=== PATIENT | female | born 2000 | race Hispanic/Latino ===

== ENCOUNTER 2020-09-02 10:14 | Emergency (ER) | payer BC ==
--- NOTE | 2020-09-02 10:57 | EDPHYS ---
Physician Documentation [facility] Name: Hetal White Age: 20 yrs Sex: Female : 2000 Arrival Date: 09/02/2020 Time: 10:15 Bed 13 Private MD: ED Physician Frank Carlson HPI: 09/02 10:52 This 20 yrs old Female presents to ER via Ambulatory with complaints of Wrist jr8 Injury. 10:52 The patient or guardian reports decreased range of motion, pain, swelling, tenderness. jr8 The complaints affect the left wrist diffusely. Context: The problem was sustained at home, resulted from a fall. Onset: The symptoms/episode began/occurred acutely, yesterday. Modifying factors: The symptoms are alleviated by nothing, the symptoms are aggravated by movement. Associated signs and symptoms: The patient has no apparent associated signs or symptoms. The patient has not experienced similar symptoms in the past. The patient has not recently seen a physician. Patient stated that she fell off barstool. Tried to catch herself but landed on an extended left wrist. Pain over radial portion of wrist with swelling since incident . 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 - Social history:: Smoking status: Reported history of juuling and/or vaping. Patient uses alcohol, occasionally. ROS: 10:52 Eyes: Negative for injury, pain, redness, and discharge, ENT: Negative for injury, jr8 pain, and discharge, Neck: Negative for injury, pain, and swelling, Cardiovascular: Negative for chest pain, palpitations, and edema, Respiratory: Negative for shortness of breath, cough, wheezing, and pleuritic chest pain, Abdomen/GI: Negative for abdominal pain, nausea, vomiting, diarrhea, and constipation, Back: Negative for injury and pain, Skin: Negative for injury, rash, and discoloration, Neuro: Negative for headache, weakness, numbness, tingling, and seizure. 10:52 MS/extremity: Positive for decreased range of motion, pain, swelling, tenderness, of the left wrist. Exam: 10:52 Constitutional: This is a well developed, well nourished patient who is awake, alert, jr8 and in no acute distress. Cardiovascular: Regular rate and rhythm with a normal S1 and S2. No gallops, murmurs, or rubs. Normal PMI, no JVD. No pulse deficits. Respiratory: Lungs have equal breath sounds bilaterally, clear to auscultation and percussion. No rales, rhonchi or wheezes noted. No increased work of breathing, no retractions or nasal flaring. Skin: Warm, dry with normal turgor. Normal color with no rashes, no lesions, and no evidence of cellulitis. Neuro: Awake and alert, GCS 15, oriented to person, place, time, and situation. Cranial nerves II-XII grossly intact. Motor strength 5/5 in all extremities. Sensory grossly intact. Cerebellar exam normal. Normal gait. 10:52 Musculoskeletal/extremity: Extremities: grossly normal except: noted in the left wrist: swelling noted to left radial portion of wrist with moderate point tenderness. Full Active Passive ROM present but with moderate pain , Circulation is intact in all extremities. Pulses: noted to be 2+ in the right radial artery and left radial artery, Sensation intact. Vital Signs: 10:28 BP 131 / 67; Pulse 89; Resp 18; Temp 98.5(TE); Pulse Ox 99% on R/A; Weight 81.65 kg tw2 (R); Height 5 ft. 4 in. (162.56 cm); Pain 8/10; 11:27 BP 116 / 65; Pulse 64; Resp 18; Pulse Ox 100% on R/A; Pain 6/10; tw2 10:28 Body Mass Index 30.90 (81.65 kg, 162.56 cm) tw2 Procedures: 10:52 Splinting: Splint applied to left wrist using Orthoglass splint, applied by tech. jr8 Examined by me, post splint application: neurovascular intact, 2+ distal pulses palpable, brisk capillary refill noted, Patient tolerated well. MDM: 10:35 Patient medically screened. jr8 10:37 Patient medically screened. jr8 10:52 Data reviewed: vital signs, nurses notes, radiologic studies, plain films. Data jr8 interpreted: Pulse oximetry: on room air is 99 %. Interpretation: normal. Counseling: I had a detailed discussion with the patient and/or guardian regarding: the historical points, exam findings, and any diagnostic results supporting the discharge/admit diagnosis, radiology results, the need for outpatient follow up, a orthopedic surgeon, to return to the emergency department if symptoms worsen or persist or if there are any questions or concerns that arise at home. 09/02 10:35 Order name: XRAY Wrist LEFT 3 view; Complete Time: jr8 09/02 10:55 Order name: Sugar Tong Forearm Splint; Complete Time: : tw2 09/02 11:28 Order name: Sling; Complete Time: : tw2 Administered Medications: 10:54 Drug: [place] (7.5 mg-325 mg) 1 tabs {Note: RASS 0.} Route: PO; tw2 11:27 Follow up: Response: No adverse reaction; Pain is decreased; RASS: Alert and Calm (0) tw2 Disposition: 09/03 09:22 Co-signature as Attending Physician, Frank Carlson MD I agree with the assessment and karyna plan of care. Disposition: 09/02/20 10:56 Discharged to Home. Impression: Distal Radius Fracture Left Wrist . - Condition is Stable. - Discharge Instructions: Wrist Fracture Treated With Immobilization. - Prescriptions for Ibuprofen 800 mg Oral Tablet - take 1 tablet by ORAL route every 12 hours As needed take with food; 20 tablet. - Medication Reconciliation Form, Thank You Letter, Antibiotic Education, Prescription Opioid Use form. - Follow up: Hosea Orozco MD; When: 2 - 3 days; Reason: Recheck today's complaints, Continuance of care, Re-evaluation by your physician. - Problem is new. - Symptoms have improved. Signatures: Dispatcher [employer] [facility] Frank Carlson MD MD cha Roszak, Josh, PA PA jr8 Stephanie Sims, RN RN tw2 Corrections: (The following items were deleted from the chart) 09/02 11: 10:56 09/02/2020 10:56 Discharged to Home. Impression: Distal Radius Fracture Left tw2 Wrist . Condition is Stable. Forms are Medication Reconciliation Form, Thank You Letter, Antibiotic Education, Prescription Opioid Use. Follow up: Dr. Hosea Orozco; When: 2 - 3 days; Reason: Recheck today's complaints, Continuance of care, Re-evaluation by your physician. Problem is new. Symptoms have improved. jr8
--- NOTE | 2020-09-02 10:57 | ER ---
Nurse's Notes [facility] Name: Hetal White Age: 20 yrs Sex: Female : 2000 Arrival Date: 09/02/2020 Time: 10:15 Bed 13 Private MD: Diagnosis: Distal Radius Fracture Left Wrist Presentation: 09/02 10:28 Chief complaint: Patient states: Wednesday i fell when i went to sit on a stool, i went to tw2 catch myself and the pain has just increased, i can grab stuff but it hurts to move it, my LEFT wrist. Coronavirus screen: At this time, the client does not indicate any symptoms associated with coronavirus-19. Ebola Screen: Patient denies travel to an Ebola-affected area in the 21 days before illness onset. Initial Sepsis Screen: Does the patient meet any 2 criteria? No. Patient's initial sepsis screen is negative. Does the patient have a suspected source of infection? No. Patient's initial sepsis screen is negative. Risk Assessment: Do you want to hurt yourself or someone else? Patient reports no desire to harm self or others. Onset of symptoms was September 02, 2020. 10:28 Method Of Arrival: Ambulatory tw2 10:28 Acuity: MAREK 4 tw2 Triage Assessment: 10:31 General: Appears in no apparent distress. well groomed, Behavior is calm, cooperative, tw2 appropriate for age. Pain: Complains of pain in LEFT wrist. EENT: No signs and/or symptoms were reported regarding the EENT system. Neuro: Level of Consciousness is awake, alert, obeys commands, Oriented to person, place, time, situation. Cardiovascular: Patient's skin is warm and dry. Respiratory: Airway is patent Respiratory effort is even, unlabored, Respiratory pattern is regular, symmetrical. GI: No signs and/or symptoms were reported involving the gastrointestinal system. : No signs and/or symptoms were reported regarding the genitourinary system. Derm: No signs and/or symptoms reported regarding the dermatologic system. Musculoskeletal: Circulation, motion, and sensation intact. Range of motion: intact in all extremities, Reports pain in LEFT wrist pt reports swelling. Injury Description: "tried to catch myself when i went to sit on a stool". 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 - Social history:: Smoking status: Reported history of juuling and/or vaping. Patient uses alcohol, occasionally. Screenin:33 Abuse screen: Denies threats or abuse. Nutritional screening: No deficits noted. tw2 Tuberculosis screening: No symptoms or risk factors identified. Fall Risk None identified. Assessment: 10:32 Reassessment: see triage assessment. tw2 10:50 Reassessment: provider at bedside at this time. tw2 11:27 Reassessment: Patient appears in no apparent distress at this time. No changes from tw2 previously documented assessment. Patient and/or family updated on plan of care and expected duration. Pain level reassessed. Patient is alert, oriented x 3, equal unlabored respirations, skin warm/dry/pink. Vital Signs: 10:28 BP 131 / 67; Pulse 89; Resp 18; Temp 98.5(TE); Pulse Ox 99% on R/A; Weight 81.65 kg tw2 (R); Height 5 ft. 4 in. (162.56 cm); Pain 8/10; 11:27 BP 116 / 65; Pulse 64; Resp 18; Pulse Ox 100% on R/A; Pain 6/10; tw2 10:28 Body Mass Index 30.90 (81.65 kg, 162.56 cm) tw2 ED Course: 10:15 Patient arrived in ED. ag5 10:23 Bed in low position. Call light in reach. Adult w/ patient. Pulse ox on. NIBP on. tw2 10:30 Triage completed. tw2 10:32 Arm band placed on. tw2 10:35 Puneet Peguero PA is PHCP. jr8 10:35 Frank Carlson MD is Attending Physician. jr8 10:47 XRAY Wrist LEFT 3 view In Process Unspecified. EDMS 10:49 Stephanie Sims, JAIME is Primary Nurse. tw2 10:56 Hosea Orozco MD is Referral Physician. jr8 11:08 Orthoglass splint: Sugar tong splint applied on left arm. Sling applied to left arm. ct 11:28 No provider procedures requiring assistance completed. Patient did not have IV access tw2 during this emergency room visit. Administered Medications: 10:54 Drug: [place] (7.5 mg-325 mg) 1 tabs {Note: RASS 0.} Route: PO; tw2 11:27 Follow up: Response: No adverse reaction; Pain is decreased; RASS: Alert and Calm (0) tw2 Outcome: 10:56 Discharge ordered by MD. whatley 11:28 Discharged to home ambulatory, with family. tw2 11:28 Condition: stable 11:28 Discharge instructions given to patient, family, Instructed on discharge instructions, follow up and referral plans. medication usage, Demonstrated understanding of instructions, follow-up care, medications, Prescriptions given X 1. 11:28 Patient left the ED. tw2 Signatures: Dispatcher [employer] EDMS Puneet Peguero PA PA jrStephanie Souza RN RN tw2 Criselda Miles ct Chon Mccoy [facility]
[2020-09-02] MEDS ORDERED: HYDROCODONE/APAP 7.5/325 MG TAB ONE (11:06)
--- NOTE | 2020-09-02 11:20 | RAD REPORT ---
EXAM DESCRIPTION: RAD - Wrist Left 3 View - 09/02/2020 10:49 am CLINICAL HISTORY: PAIN Pain COMPARISON: No comparisons FINDINGS: Soft tissue swelling is seen along the dorsum of the wrist. No acute fracture or dislocat ion is seen.
[2020-09-02 14:36] VITALS: TEMP 98.5
[2020-09-02 14:37] VITALS: BP 116/65; O2SAT 100
== END 2020-09-02 11:28 | disposition home or self-care (01) ==
LOC: ER 10:14
PROC: 2W3DX1Z Immobilization of Left Lower Arm using Splint (ICD-10-PCS; principal; 2020-09-02)
DX: S52.502A Unspecified fracture of the lower end of left radius, initial encounter for closed fracture (principal); W17.89XA Other fall from one level to another, initial encounter; Y93.9 Activity, unspecified; Y92.009 Unspecified place in unspecified non-institutional (private) residence as the place of occurrence of the external cause
CPT/HCPCS: 99284

== ENCOUNTER 2021-03-24 22:26 | Emergency (ER) | payer BC ==
[2021-03-24] MEDS ORDERED: ONDANSETRON 4 MG/2 ML VIAL ONE (23:50)
[2021-03-24] MEDS ORDERED: NA CHLORIDE 0.9% 1,000 ML ONE (23:51)
[2021-03-24] MEDS ORDERED: IBUPROFEN 400 MG TAB ONE (23:51)
[2021-03-25 00:10] LABS: Albumin 3.5 g/dL (3.4-5.0); Bilirubin Direct 0.2 mg/dL (0-0.2); Bilirubin Total 0.7 mg/dL (0.2-1.0); Potassium 3.7 mmol/L (3.5-5.1); Protein, Total 7.7 g/dL (6.4-8.2)
[2021-03-25 00:25] LABS: Absolute Lymphocytes (CBC) 1.9 K/uL (0.7-4.9); Basophils % 0.3 % (0-1.3); Hematocrit 38.2 % (36.0-45.0); Lymphocytes % 9.7 % (15.3-44.8); MPV 9.4 fL (7.6-11.3); RBC Red Blood Cell Count 4.37 M/uL (3.86-4.86)
[2021-03-25] MEDS ORDERED: NA CHLORIDE 0.9% 1,000 ML ONE (01:14)
[2021-03-25 01:42] LABS: Urine Bacteria <20 /HPF (<20)
[2021-03-25 01:43] LABS: Urine RBC <5 /HPF (NONE SEEN); Urine Urothelial Cells <5 /HPF (NONE SEEN)
[2021-03-25] MEDS ORDERED: CEFTRIAXONE/SWI 1gm 1 GM/10 ML SYR ONE (02:29)
[2021-03-25 03:04] LABS: Urine Specific Gravity/Preg <1.005 (1.005-1.030)
--- NOTE | 2021-03-25 04:05 | ER ---
Nurse's Notes [facility] Name: Hetal White Age: 21 yrs Sex: Female : 2000 Arrival Date: 03/24/2021 Time: 22:29 Bed 20 Private MD: Diagnosis: Other abdominal pain;Urinary tract infection, site not specified Presentation: 03/24 23:06 Chief complaint: Patient states: she started having abdominal pain on Wednesday with bb vomiting then diarrhea starting today and had temp at home of 104 took tylenol at 1730. Coronavirus screen: diarrhea, fever, vomiting. Client presents with at least one sign or symptom that may indicate coronavirus-19. Standard/surgical mask placed on the client. Ebola Screen: No symptoms or risks identified at this time. Initial Sepsis Screen: Does the patient meet any 2 criteria? Temp <36.0*C (96.8*F)) or > 38.3*C (100.9*F). HR > 90 bpm. Yes Does the patient have a suspected source of infection? No. Patient's initial sepsis screen is negative. Risk Assessment: Do you want to hurt yourself or someone else? Patient reports no desire to harm self or others. Onset of symptoms was March 23, 2021. 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 - Social history:: Smoking status: Reported history of juuling and/or vaping. Patient uses alcohol, but reports only rare drinking. Patient/guardian denies using street drugs. Screenin:23 Abuse screen: Denies threats or abuse. Nutritional screening: No deficits noted. ea Tuberculosis screening: No symptoms or risk factors identified. Fall Risk None identified. Assessment: 23:23 General: Appears uncomfortable, Behavior is appropriate for age. Neuro: Level of ea Consciousness is awake, alert, obeys commands, Oriented to person, place, time. Respiratory: Airway is patent Respiratory effort is even, unlabored, Respiratory pattern is regular, symmetrical. Derm: Skin is pink, warm \T\ dry. 03/25 00:29 Reassessment: Patient and/or family updated on plan of care and expected duration. Pain ea level reassessed. Patient is alert, oriented x 3, equal unlabored respirations, skin warm/dry/pink. 01:09 Reassessment: Patient and/or family updated on plan of care and expected duration. Pain ea level reassessed. Patient is alert, oriented x 3, equal unlabored respirations, skin warm/dry/pink. Patient states feeling better. 02:22 Reassessment: Patient and/or family updated on plan of care and expected duration. Pain ea level reassessed. Patient is alert, oriented x 3, equal unlabored respirations, skin warm/dry/pink. Patient states feeling better. 03:05 Reassessment: Patient and/or family updated on plan of care and expected duration. Pain ea level reassessed. Patient is alert, oriented x 3, equal unlabored respirations, skin warm/dry/pink. Awaiting on CT results. 04:11 Reassessment: Patient appears in no apparent distress at this time. Patient is alert, ad5 oriented x 3, equal unlabored respirations, skin warm/dry/pink. Patient states feeling better. Vital Signs: 03/24 23:06 BP 115 / 66; Pulse 139; Resp 18 S; Temp 103.8(O); Pulse Ox 99% on R/A; Weight 81.65 kg bb (R); Height 5 ft. 3 in. (160.02 cm) (R); Pain 0/10; 03/25 01:06 BP 108 / 60; Pulse 108; Resp 20; Temp 100.4; Pulse Ox 96% ; ea 03:45 BP 101 / 60; Pulse 77; Resp 18 S; Temp 98.5(O); Pulse Ox 98% on R/A; ad5 03/24 23:06 Body Mass Index 31.89 (81.65 kg, 160.02 cm) bb ED Course: 03/24 22:29 Patient arrived in ED. am4 23:08 Triage completed. bb 23:09 Arm band placed on Patient placed in an exam room, on a stretcher, on pulse oximetry. bb Family accompanied patient. 23:16 Frank Julio PA is PHCP. cp 23:16 Negrito Lau MD is Attending Physician. cp 23:23 Candace Weathers, JAIME is Primary Nurse. ea 23:23 Patient has correct armband on for positive identification. Bed in low position. Call ea light in reach. 23:45 Inserted saline lock: 20 gauge in right antecubital area, using aseptic technique. ea Blood collected. 03/25 02:47 CT Abd/Pelvis - IV Contrast Only In Process Unspecified. EDMS 04:11 No provider procedures requiring assistance completed. IV discontinued, intact, ad5 bleeding controlled, No redness/swelling at site. Pressure dressing applied. Administered Medications: 03/24 23:44 Drug: NS 0.9% 1000 ml Route: IV; Rate: 1 bolus; Site: right antecubital; ea 03/25 01:05 Follow up: Response: No adverse reaction; IV Status: Completed infusion; IV Intake: ea 1000ml 03/24 23:44 Drug: Zofran (Ondansetron) 4 mg Route: IVP; Site: right antecubital; ea 03/25 01:06 Follow up: Response: No adverse reaction ea 03/24 23:44 Drug: Ibuprofen 800 mg Route: PO; ea 03/25 01:06 Follow up: Response: No adverse reaction; Temperature is decreased ea 01:05 Drug: NS 0.9% 1000 ml Route: IV; Rate: 1 bolus; Site: right antecubital; ea 03:46 Follow up: IV Status: Completed infusion; IV Intake: 1000ml ad5 02:16 Drug: Rocephin (cefTRIAXone) 1 grams Route: IV; Rate: bolus; Site: right antecubital; ea 04:11 Follow up: IV Status: Completed infusion ad5 Intake: 01:05 IV: 1000ml; Total: 1000ml. ea 03:46 IV: 1000ml; Total: 2000ml. ad5 Outcome: 04:03 Discharge ordered by . tw4 04:12 Discharged to home ambulatory, with family. ad5 04:12 Condition: stable 04:12 Discharge instructions given to patient, Instructed on discharge instructions, follow up and referral plans. medication usage, Demonstrated understanding of instructions, follow-up care, medications, Prescriptions given X 3. 04:12 Patient left the ED. ad5 Signatures: Dispatcher [facility] Zaira Cloud RN RN Frank Andrade PA PA cp Antunez, Elena, RN RN Negrito Salazar MD MD tw4 Hetal Chatterjee am4 Reji Dumont
--- NOTE | 2021-03-25 04:05 | EDPHYS ---
Physician Documentation [facility] Name: Hetal White Age: 21 yrs Sex: Female : 2000 Arrival Date: 03/24/2021 Time: 22:29 Bed 20 Private MD: ED Physician Negrito aLu HPI: 03/24 23:35 This 21 yrs old Female presents to ER via Ambulatory with complaints of Fever, cp RINGING OG THE EARS. 23:35 The patient reports fever, with an emergency department temperature of 103.8 degrees cp Fahrenheit. Onset: The symptoms/episode began/occurred yesterday. 23:35 Associated signs and symptoms: Pertinent positives: diarrhea, nausea, vomiting. cp 23:35 Severity of symptoms: in the emergency department the symptoms are unchanged despite cp home interventions. F[employer] VEGETABLE: 23:09 LMP 03/17/2021 bb Historical: - Allergies: 23:09 No Known Allergies; bb - Home Meds: 23:09 tri-lo-Emmy control [Active]; bb - PMHx: 23:09 None; bb - PSHx: 23:09 None; bb - Immunization history:: Adult Immunizations up to date. - Social history:: Smoking status: Reported history of juuling and/or vaping. Patient uses alcohol, but reports only rare drinking. Patient/guardian denies using street drugs. ROS: 23:40 Constitutional: Positive for chills, fever. cp 23:40 Eyes: Negative for injury, pain, redness, and discharge. cp 23:40 ENT: Negative for drainage from ear(s), ear pain, sore throat, difficulty swallowing, difficulty handling secretions. 23:40 Neck: Negative for pain with movement, pain at rest, stiffness. 23:40 Cardiovascular: Negative for chest pain. 23:40 Respiratory: Negative for cough, shortness of breath, wheezing. 23:40 Abdomen/GI: Positive for nausea, vomiting, and diarrhea, Negative for abdominal pain, constipation. 23:40 Back: Negative for pain at rest, pain with movement. 23:40 : Negative for urinary symptoms. 23:40 Skin: Negative for cellulitis, rash. 23:40 Neuro: Negative for altered mental status, headache, weakness. 23:40 All other systems are negative. Exam: 23:45 Constitutional: The patient appears in no acute distress, alert, awake, comfortable, cp non-toxic, well developed, well nourished. 23:45 Head/Face: Normocephalic, atraumatic. cp 23:45 Eyes: Periorbital structures: appear normal, Conjunctiva: normal, no exudate, no injection, Sclera: no appreciated abnormality, Lids and lashes: appear normal, bilaterally. 23:45 ENT: External ear(s): are unremarkable, Ear canal(s): are normal, clear, TM's: dullness, bilaterally, Nose: is normal, Mouth: Lips: moist, Oral mucosa: moist, Posterior pharynx: Airway: no evidence of obstruction, patent. 23:45 Neck: ROM/movement: is normal, is supple, without pain, no range of motions limitations, no meningismus. 23:45 Chest/axilla: Inspection: normal, Palpation: is normal, no crepitus, no tenderness. 23:45 Cardiovascular: Rate: tachycardic, Rhythm: regular. 23:45 Respiratory: the patient does not display signs of respiratory distress, Respirations: normal, no use of accessory muscles, no retractions, labored breathing, is not present, Breath sounds: are clear throughout, no decreased breath sounds, no stridor, no wheezing. 23:45 Abdomen/GI: Inspection: abdomen appears normal, Bowel sounds: active, all quadrants, Palpation: abdomen is soft and non-tender, in all quadrants, rebound tenderness, is not appreciated, voluntary guarding, is not appreciated, involuntary guarding, is not appreciated. 23:45 Back: pain, is absent, ROM is normal. 23:45 Skin: cellulitis, is not appreciated, no rash present. Vital Signs: 23:06 BP 115 / 66; Pulse 139; Resp 18 S; Temp 103.8(O); Pulse Ox 99% on R/A; Weight 81.65 kg bb (R); Height 5 ft. 3 in. (160.02 cm) (R); Pain 0/10; 03/25 01:06 BP 108 / 60; Pulse 108; Resp 20; Temp 100.4; Pulse Ox 96% ; ea 03:45 BP 101 / 60; Pulse 77; Resp 18 S; Temp 98.5(O); Pulse Ox 98% on R/A; ad5 03/24 23:06 Body Mass Index 31.89 (81.65 kg, 160.02 cm) bb MDM: 03/24 23:18 Patient medically screened. 03/25 00:00 Differential diagnosis: URI, bronchitis, pneumonia UTI, sepsis. cp 02:10 Data reviewed: vital signs, nurses notes, lab test result(s). 02:10 Transition of care: After a detail discussion of the patient's case, care is cp transferred to Negrito Lau MD. 03/24 23:26 Order name: Basic Metabolic Panel 03/24 23:26 Order name: CBC with Diff 03/24 23:26 Order name: Hepatic Function 03/24 23:26 Order name: Lipase 03/24 23:26 Order name: Urine Microscopic Only; Complete Time: 02:05 03/24 23:26 Order name: Influenza Screen (a \T\ B); Complete Time: 00:37 03/24 23:27 Order name: Basic Metabolic Panel; Complete Time: 00:37 EDNV 03/25 00:37 Interpretation: Normal except: GLUC 120; GFR 83. 03/24 23:27 Order name: CBC with Automated Diff; Complete Time: 00:37 EDNV 03/25 00:37 Interpretation: Normal except: WBC 19.90; GUANAKO% 80.9; LYM% 9.7; NEUT A 16.1; MNA 1.8. 03/24 23:27 Order name: Liver (Hepatic) Function; Complete Time: 00:37 EDNV 03/25 00:38 Interpretation: Normal except: AST 8; GLOB 4.2; A/G 0.8. 03/24 23:27 Order name: Lipase; Complete Time: 00:37 EDNV 03/25 01:38 Order name: SARS-COV-2 RT PCR; Complete Time: 02:06 EDNV 03/25 01:44 Order name: Urine Culture EDNV 03/25 02:24 Order name: Urine --Ancillary (enter results) 03/24 23:26 Order name: IV Saline Lock; Complete Time: 23:45 03/24 23:26 Order name: Labs collected and sent; Complete Time: 23:45 03/24 23:27 Order name: CT Abd/Pelvis - IV Contrast Only 03/25 02:24 Order name: Urine --Ancillary EDMS Administered Medications: 03/24 23:44 Drug: NS 0.9% 1000 ml Route: IV; Rate: 1 bolus; Site: right antecubital; ea 03/25 01:05 Follow up: Response: No adverse reaction; IV Status: Completed infusion; IV Intake: ea 1000ml 03/24 23:44 Drug: Zofran (Ondansetron) 4 mg Route: IVP; Site: right antecubital; ea 03/25 01:06 Follow up: Response: No adverse reaction ea 03/24 23:44 Drug: Ibuprofen 800 mg Route: PO; ea 03/25 01:06 Follow up: Response: No adverse reaction; Temperature is decreased ea 01:05 Drug: NS 0.9% 1000 ml Route: IV; Rate: 1 bolus; Site: right antecubital; ea 03:46 Follow up: IV Status: Completed infusion; IV Intake: 1000ml ad5 02:16 Drug: Rocephin (cefTRIAXone) 1 grams Route: IV; Rate: bolus; Site: right antecubital; ea 04:11 Follow up: IV Status: Completed infusion ad5 Disposition: 03/25/21 04:03 Discharged to Home. Impression: Other abdominal pain, Urinary tract infection, site not specified. - Condition is Stable. - Discharge Instructions: Urinary Tract Infection, Adult. - Prescriptions for Pyridium 200 mg Oral Tablet - take 1 tablet by ORAL route every 8 hours for 3 days; 9 tablet. Zofran 4 mg Oral Tablet - take 1 tablet by ORAL route every 12 hours As needed; 20 tablet. Macrobid 100 mg Oral Capsule - take 1 capsule by ORAL route every 12 hours for 10 days; 20 capsule. - Medication Reconciliation Form, Thank You Letter, Antibiotic Education, Prescription Opioid Use form. - Follow up: Private Physician; When: Upon discharge from the Emergency Department; Reason: Recheck today's complaints, Continuance of care, Re-evaluation by your physician. - Problem is new. - Symptoms have improved. Signatures: Dispatcher [employer] EDMS Zaira Cloud, RN RN Frank Andrade PA PA cp Antunez, Elena, RN RN Negrito Salazar MD MD tw4 Reji Dumont ad5 Corrections: (The following items were deleted from the chart) 00:36 03/24 23:27 CORONAVIRUS+MR.LAB.BRZ ordered. EDMS EDMS 03/25 00:37 00:37 Normal except: WBC 19.90; GUANAKO% 80.9; LYM% 9.7; NEUT A 16.1. cp cp 04:12 04:03 03/25/2021 04:03 Discharged to Home. Impression: Other abdominal pain; Urinary ad5 tract infection, site not specified. Condition is Stable. Forms are Medication Reconciliation Form, Thank You Letter, Antibiotic Education, Prescription Opioid Use. Follow up: Private Physician; When: Upon discharge from the Emergency Department; Reason: Recheck today's complaints, Continuance of care, Re-evaluation by your physician. Problem is new. Symptoms have improved. tw4
[2021-03-25 04:25] VITALS: BP 101/60; TEMP 98.5; O2SAT 98
--- NOTE | 2021-03-25 11:27 | RAD REPORT ---
EXAM DESCRIPTION: CT - Abdomen Pelvis W Contrast - 03/25/2021 6:54 am CLINICAL HISTORY: The patient is 21 years old and is Female; nausea and vomiting, diarrhea TECHNIQUE: Axial computed tomography images of the abdomen and pelvis with intravenous contrast. S agittal and coronal reformatted images were created and reviewed. This CT exam was performed using one or more of the following dose reduction techniques: automated exposure control, adjustment of t he mA and/or kV according to patient size, and/or use of iterative reconstruction technique. COMPARISON: No relevant prior studies available. FINDINGS: Lung bases: Unremarkable. No mass. No consolidation. ABDOMEN: Liver: Unremarkable. No mass. Gallbladder and bile ducts: Unremarkable. No calcified stones. No ductal dilation. Pancreas: Unremarkable. No mass. No ductal dilation. Spleen: Unremarkable. No splenomegaly. Adrenals: Unremarkable. No mass. Kidneys and ureters: Heterogeneous appearance to the right kidney. No hydronephrosis. Stomach and bowel: Unremarkable. No obstruction. No mucosal thickening. PELVIS: Appendix: No findings to suggest acute appendicitis. Bladder: Unremarkable. No mass. Reproductive: Unremarkable as visualized. ABDOMEN and PELVIS: Intraperitoneal space: Unremarkable. No free air. No significant fluid collection. Bones/joints: No acute fracture. No dislocation. Soft tissues: Unremarkable. Vasculature: Unremarkable. No abdominal aortic aneurysm. Lymph nodes: Unremarkable. No enlarged lymph nodes. IMPRESSION: 1. The gastrointestinal system appears normal. 2. Heterogeneous appearance to the right kidney. Correlate with any concern for pyelonephritis or renal infarcts. Electronically signed by: Ernst Acevedo MD 03/25/2021 3:52 AM CDT Due to temporary technical issues with the PACS/Fluency reporting system, reports are being signed by the in house radiologist without review as a courtesy to ensure prompt reporting. The interpreting r adiologist is fully responsible for the content of the report.
== END 2021-03-25 04:12 | disposition home or self-care (01) ==
LOC: ER 22:26
DX: N39.0 Urinary tract infection, site not specified (principal); R10.9 Unspecified abdominal pain; Z20.822 Contact with and (suspected) exposure to COVID-19
CPT/HCPCS: 87088; 85025; 87086; 80048; 36415; 81025; 80076; 81015; 83690; 87804 ×2; 74177; U0003; Q9967; J0696; J7030 ×2; J2405; 87077; 87186; 96361; 96365; 96366; 96375; 99284